=== PATIENT | male | born 1930 | race Caucasian/White ===

== ENCOUNTER → 2017-08-15 09:42 | Outpatient (CLI) | payer MEDICARE, OTHER ==
[2013-12-23 11:00] VITALS: BMI 32.0
[~2017-08-15 09:42] MED LIST: BYSTOLIC5 MG PO; COLCRYS0.6 MG PO; CORDARONE200 MG PO; COUMADIN4 MG PO; DUONEB 2.5-0.5 M3 ML UPD; ESTER-C 500 MG1 TAB PO; LASIX INJ40 MG/4 ML IV; LEVOTHROID50 MCG PO; LOTREL 5/10 MG1 CAP PO; NEXIUM20 MG PO; NORCO 7.5/325 T1 TA1 PO; ONDANSETRON4 MG/2 M3 IV; PEPCID20 MG PO; PROTONIX 40 MG40 MG IV; TYLENOL 325 MG325 MG PO
[2017-08-15 12:28] LABS: BASOPHILS 0.8 % (0-2); EOSINOPHILS 3.5 % (0-7); HEMOGLOBIN 12.2 g/dL (13.5-17.5); IMMATURE GRANULOCYTES 0.4 % (0-5); LYMPHOCYTES 26.3 % (15-50); MCH 28.4 pg (26.0-34.0); MCHC 31.3 g/dL (31.0-37.0); MCV 90.7 fL (80.0-100.0); MEAN PLATELET VOLUME 10.9 fL (7.4-10.4); MONOCYTES 6.3 % (2-11); NEUTROPHILS 62.7 % (40-80); RDW 21.9 % (11.5-14.5); WBC 5.1 10x3/uL (4.8-10.8)
[2017-08-15 12:41] LABS: ANION GAP 10.4 mmol/L (8-16); CALCIUM 8.7 mg/dL (8.5-10.1); CARBON DIOXIDE 32.7 mmol/L (21.0-32.0); CREATININE - SERUM 2.5 mg/dL (0.6-1.3); POTASSIUM - SERUM 3.1 mmol/L (3.5-5.1)
[2017-08-15 12:42] LABS: PLATELET COUNT 109 10x3/uL (130-400)
[2017-08-15 14:00] LABS: APPEARANCE HAZY (CLEAR); BILIRUBIN NEGATIVE (NEGATIVE); COLOR DK YELLOW (YELLOW); GLUCOSE NEGATIVE (NEGATIVE); KETONE NEGATIVE (NEGATIVE); NITRITE NEGATIVE (NEGATIVE); PROTEIN TRACE mg/dL (NEGATIVE)
[2017-08-15 14:02] LABS: BACTERIA MODERATE /hpf (NONE SEEN); CALCIUM OXALATE CRYSTALS OCC /hpf (NONE SEEN); EPITHELIAL CELLS OCC /hpf (0-5); GRANULAR CAST OCC /lpf (NONE SEEN); HYALINE CAST 0-5 /lpf (NONE SEEN); MUCUS <1+ /lpf (NONE SEEN); RED CELLS - URINE 0-5 /hpf (0-5); WHITE CELLS - URINE RARE /hpf (0-5)
== END | disposition home or self-care (01) ==
LOC: D.LABREF 09:42
PROVIDERS: Family Medicine
DX: N18.3 Chronic kidney disease, stage 3 (moderate) (principal); I50.9 Heart failure, unspecified; R50.9 Fever, unspecified; I30.0 Acute nonspecific idiopathic pericarditis